=== PATIENT | male | born 2000 | race Native Hawaiian/Other Pacific Islander ===

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

== ENCOUNTER 2020-10-19 09:29 | Outpatient (CLI) | payer OTHER | END 2020-10-19 22:05 | disposition home or self-care (01) | LOC: MRI 09:29 | PROVIDERS: ATTEND Plastic Surgery Plastic Surgery Within the Head and Neck | DX: R22.1 Localized swelling, mass and lump, neck (principal) | CPT/HCPCS: A9576 ==

== ENCOUNTER 2021-01-28 17:58 | Outpatient (CLI) | payer OTHER ==
[2021-01-28 19:08] LABS: PLATELET COUNT 200 K/uL (142-355)
[2021-01-28 19:13] LABS: POTASSIUM 4.4 mmol/L (3.6-5.2)
== END 2021-01-28 21:23 | disposition home or self-care (01) ==
LOC: LABW 17:58
PROVIDERS: ATTEND Plastic Surgery
DX: Z01.812 Encounter for preprocedural laboratory examination (principal); Z01.818 Encounter for other preprocedural examination
CPT/HCPCS: 36415; 80048; 85027

== ENCOUNTER 2021-09-04 13:38 | Emergency (ER) | payer OTHER ==
[~2021-09-04] VITALS: Ht 182.9 cm; Wt 72.6 kg
[2021-09-04 13:49] VITALS: BP 152/81; TEMP 98.2
[2021-09-04 14:19] LABS: PLATELET COUNT 169 K/uL (142-355)
[2021-09-04 14:27] LABS: PARTIAL THROMBOPLASTIN TIME 26.6 SECONDS (24.5-33.6)
[2021-09-04 14:28] LABS: POTASSIUM 4.2 mmol/L (3.6-5.2)
== END 2021-09-04 15:01 | disposition home or self-care (01) ==
LOC: ED 13:38
PROVIDERS: Hospitalist
DX: R07.89 Other chest pain (principal); R09.1 Pleurisy
CPT/HCPCS: 80053; 82550; 83880; 84484; 85027; 85379; 85610; 85730; 93005; 99283

== ENCOUNTER 2021-12-21 21:16 | Emergency (ER) | payer OTHER ==
[~2021-12-21] VITALS: Ht 182.9 cm; Wt 74.8 kg
[2021-12-21 22:10] VITALS: BP 129/79
== END 2021-12-21 22:10 | disposition home or self-care (01) ==
LOC: ED 21:16
DX: K29.60 Other gastritis without bleeding (principal)
CPT/HCPCS: 99281